=== PATIENT | male | born 1955 | race Caucasian/White ===

== ENCOUNTER → 2017-03-05 | Outpatient (CLI) | payer OTHER ==
--- NOTE | 2017-03-05 12:37 | RAD ---
PROCEDURE MR of the left shoulder HISTORY Recent left shoulder pain. History of rotator cuff repair. TECHNIQUE Standard routine multiplanar sequences are obtained. COMPARISON None FINDINGS The acromioclavicular joint appears postoperative with widening of the joint. No acute findings or gross undersurface hypertrophy. Postsurgical changes of the rotator cuff with suture anchors are screws at the humeral head. Diffuse irregularity of the supraspinatus and the infraspinatus tendons there is a partial thickness undersurface tear of the supraspinatus tendon measures about 15 mm AP diameter. The undersurface fibers are retracted about 2 cm. There is also a smaller area of through and through full-thickness defect of the supraspinatus tendon at the critical zone measuring about 5 mm diameter. Partial subscapularis tendon tear. Mild fluid in the subdeltoid bursa. Mild rotator cuff muscle atrophy. Small glenohumeral joint effusion. Moderate chondromalacia at the glenohumeral joint. Large degenerative type tearing at the superior labrum. Limited visualization of the anterior and posterior labrum due to artifact on axial images. Biceps tendon poorly visualized. No aggressive bone destruction or acute fracture. No evidence of acute soft tissue injury. IMPRESSION 1. Findings compatible with a small full-thickness defect or tear of the supraspinatus tendon, with slightly more broad undersurface partial tearing. Partial subscapularis tendon tear. 2. Findings compatible with a mild degenerative tear of the superior labrum. 3. Biceps tendon poorly seen. Electronically signed by: Gio Morgan MD (Mar 05, 2017 12:35:23)
== END | disposition home or self-care (01) ==
LOC: MRI 08:27
DX: M25.512 Pain in left shoulder (principal)
CPT/HCPCS: 73221